=== PATIENT | male | born 1935 | race Hispanic/Latino ===

== ENCOUNTER 2018-04-05 20:01 | Emergency (ER) | payer OTHER ==
[~2018-04-05 20:01] MED LIST: ATOR10 PO; CHOL500050 PO; LEVO175T9 PO; LOSA50TA25 PO; METO25 PO
== END 2018-04-05 21:23 | disposition home or self-care (01) ==
LOC: EDH 20:01
DX: R21 Rash and other nonspecific skin eruption (principal); E78.5 Hyperlipidemia, unspecified; I10 Essential (primary) hypertension; E07.9 Disorder of thyroid, unspecified; Z98.890 Other specified postprocedural states; Z87.891 Personal history of nicotine dependence

== ENCOUNTER → 2019-04-09 | Outpatient (CLI) | payer OTHER ==
[~2019-04-09] VITALS: Ht 167.6 cm; Wt 69.4 kg
[~2019-04-09] MED LIST changes: +CHOL100046 PO; -CHOL500050 PO; +CLOB15CR5 TP; +FERR324T PO; +FURO40TA5 PO; +GLIP5TAB11 PO; +LEVO150 PO; -LEVO175T9 PO; -LOSA50TA25 PO; +LOSA50TA64 PO; +METF-444 PO; -METO25 PO; +NITR0.4T50 SL; +REGADENOSON 0.4 MG/5 ML PF SYG IVP SCH
== END | disposition home or self-care (01) ==
LOC: SHCH 08:43
PROVIDERS: ATTEND Internal Medicine Cardiovascular Disease
DX: I20.9 Angina pectoris, unspecified (principal); R94.31 Abnormal electrocardiogram [ECG] [EKG]; R06.09 Other forms of dyspnea
CPT/HCPCS: 78452; 93017; 96374; A9500 ×2; J2785

== ENCOUNTER 2019-05-01 06:54 | Day surgery (SDC) | payer OTHER ==
[~2019-05-01] VITALS: Ht 167.6 cm; Wt 72.1 kg
[~2019-05-01 06:54] MED LIST changes: -CHOL100046 PO; -CLOB15CR5 TP; -FERR324T PO; -REGADENOSON 0.4 MG/5 ML PF SYG IVP SCH; +SODIUM CHLORIDE 0.9% 1000ML 1,000 ML IV ONE
[2019-05-01 07:49] VITALS: BP 134/58
[2019-05-01 07:50] LABS: BASOPHILS % (AUTO) 1.4 % (0.0-5.0); EOSINOPHILS % (AUTO) 5.5 % (0.0-8.0); LYMPHOCYTES % (AUTO) 26.8 % (21.0-51.0); MEAN CORPUSCULAR HEMOGLOBIN 26.7 pg (27.0-33.0); MEAN CORPUSCULAR HGB CONC 32.3 g/dL (32.0-36.0); MEAN CORPUSCULAR VOLUME 82.7 fL (79-99); MONOCYTES % (AUTO) 11.3 % (3.0-13.0); PLATELET COUNT (AUTO) 100 K/uL (130-400); RED BLOOD CELL COUNT(AUTO) 3.38 MIL/uL (4.50-6.20); RED CELL DISTRIBUTION WIDTH 17.7 % (11.0-15.5); WHITE BLOOD COUNT (AUTO) 6.5 K/uL (4.8-10.8)
[2019-05-01] MEDS ORDERED: CLOB15CR5 TP (08:38)
[2019-05-01 08:48] LABS: INR 1.03 (0.85-1.15); PROTHROMBIN TIME 10.8 SEC (9.6-11.6)
[2019-05-01] MEDS ORDERED: PROPOFOL 10 MG/ML 20ML VIAL IV ONE ×2 (10:26)
[2019-05-01 10:42] VITALS: BP 102/43
[2019-05-01 10:45] VITALS: BP 102/48
[2019-05-01 10:50] VITALS: BP 108/51
[2019-05-01 10:56] VITALS: BP 114/61
== END 2019-05-01 11:06 | disposition home or self-care (01) ==
LOC: DAH 06:54 → ENDO 06:54
PROVIDERS: ATTEND Internal Medicine
DX: K74.60 Unspecified cirrhosis of liver (principal); I85.00 Esophageal varices without bleeding; K31.89 Other diseases of stomach and duodenum; E03.9 Hypothyroidism, unspecified; I10 Essential (primary) hypertension; I25.10 Atherosclerotic heart disease of native coronary artery without angina pectoris; Z90.49 Acquired absence of other specified parts of digestive tract; Z98.890 Other specified postprocedural states; M19.90 Unspecified osteoarthritis, unspecified site; E78.5 Hyperlipidemia, unspecified; Z79.899 Other long term (current) drug therapy; Z95.818 Presence of other cardiac implants and grafts; Z87.891 Personal history of nicotine dependence
CPT/HCPCS: 36415; 43239; 43244; 85025; 85610; 88305; A4215; A4221; A4222; A4223; A4606; A4620; A4663; J2704 ×2; J7030

== ENCOUNTER 2019-05-14 01:16 | Day surgery (SDC) | payer OTHER ==
[2019-05-13 15:48] VITALS: BP 135/66
[2019-05-13 16:12] LABS: BASOPHILS % (AUTO) 1.4 % (0.0-5.0); EOSINOPHILS % (AUTO) 6.4 % (0.0-8.0); HEMATOCRIT 30.8 % (42-54); LYMPHOCYTES % (AUTO) 29.5 % (21.0-51.0); MEAN CORPUSCULAR HEMOGLOBIN 27.1 pg (27.0-33.0); MEAN CORPUSCULAR HGB CONC 32.3 g/dL (32.0-36.0); NEUTROPHILS % (AUTO) 54.7 % (40.0-77.0); PLATELET COUNT (AUTO) 170 K/uL (130-400); RED BLOOD CELL COUNT(AUTO) 3.66 MIL/uL (4.50-6.20); RED CELL DISTRIBUTION WIDTH 20.6 % (11.0-15.5); WHITE BLOOD COUNT (AUTO) 7.3 K/uL (4.8-10.8)
[2019-05-13 16:26] LABS: CREATININE 0.8 mg/dL (0.5-1.5); INR 1.04 (0.85-1.15); PARTIAL THROMBOPLASTIN TIME 28.9 SEC (26.3-35.5); POTASSIUM 3.8 mmol/L (3.5-5.1); PROTHROMBIN TIME 10.9 SEC (9.6-11.6)
[2019-05-13 17:46] LABS: APPEARANCE,URINE Clear (CLEAR); BILIRUBIN,URINE Negative (NEGATIVE); COLOR,URINE Yellow (YELLOW); GLUCOSE, URINE (UA) Negative (NEGATIVE); KETONES,URINE Negative (NEGATIVE); LEUKOCYTE ESTERASE ,URINE Moderate (NEGATIVE); NITRATE,URINE Negative (NEGATIVE); OCCULT BLOOD,URINE Negative (NEGATIVE); PROTEIN,URINE Negative (NEGATIVE)
[2019-05-13 17:56] LABS: BACTERIA,URINE Few /HPF (None Seen); RBC,URINE 0-1 /HPF (0-1); SQUAMOUS EPITHELIAL CELL,UR Few /HPF (0-2); WBC,URINE 51-100 /HPF (0-1)
--- NOTE | 2019-05-13 18:30 | NUR ---
DR. WHITAKER PAGE THROUGH ANSWERING SERVICE TO REPORT ABNORMAL LABS, WAITING SUPERINTENDENT TERMINAL BACK.
[~2019-05-14] VITALS: Ht 167.6 cm; Wt 71.8 kg
[2019-05-14] VITALS (10 sets, daily range): BP systolic 134–152; BP diastolic 60–87
[~2019-05-14 01:16] MED LIST changes: -FURO40TA5 PO; -GLIP5TAB11 PO; -METF-444 PO; -NITR0.4T50 SL; -SODIUM CHLORIDE 0.9% 1000ML 1,000 ML IV ONE
[2019-05-14] MEDS ORDERED: LACTATED RINGERS 1000ML 1,000 ML IV SCH (06:00)
[2019-05-14] MEDS ORDERED: CEFAZOLIN SODIUM 1 GM VIAL IVP SCH (06:00)
--- NOTE | 2019-05-14 06:55 | NUR ---
Pt taken to OR by TEJAL Davila and ANNE-MARIE Gore.
[2019-05-14] MEDS ORDERED: FURO40TA5 PO (16:37)
[2019-05-14] MEDS ORDERED: CHOL100046 PO (16:43)
[2019-05-14] MEDS ORDERED: FERR324T PO (16:43)
[2019-05-14] MEDS ORDERED: NITR0.4T50 SL (16:43)
[2019-05-14] MEDS ORDERED: BACITRACIN 28.4 GM OINT TP ONE (18:48)
[2019-05-14] MEDS ORDERED: BUPIVACAINE/PF 0.25% 30ML VIAL IJ ONE (18:49)
[2019-05-14] MEDS ORDERED: LIDOCAINE HCL 1% 20 ML VIAL ONE (18:49)
[2019-05-14] MEDS ORDERED: PROPOFOL 10 MG/ML 20ML VIAL IV ONE (19:13)
[2019-05-14] MEDS ORDERED: LIDOCAINE PF 2% 5ML ABBOJECT ONE (19:13)
[2019-05-14] MEDS ORDERED: ONDANSETRON HCL 4 MG/2 ML VIAL ONE (19:13)
[2019-05-14] MEDS ORDERED: ROCURONIUM 10MG/1ML SYR 10 MG/ML ML ONE (19:14)
[2019-05-14] MEDS ORDERED: FENTANYL CITRATE PF 50 MCG/1 ML 2ML VIAL ONE (19:14)
[2019-05-14] MEDS ORDERED: CEFAZOLIN SODIUM 1 GM VIAL ONE (19:26)
[2019-05-14] MEDS ORDERED: ZOSYN 3.375GM+NS 50ML 50 ML IV ONE (20:20)
[2019-05-14] MEDS ORDERED: PHENYLEPHRINE HCL 10 MG/ML 1ML VIAL IV ONE (20:26)
[2019-05-14] MEDS ORDERED: GLYCOPYRROLATE 1 MG/5 ML SYRINGE ONE (20:42)
[2019-05-14] MEDS ORDERED: NEOSTIGMINE 5MG/5ML SYR IV ONE (20:43)
--- NOTE | 2019-05-14 21:35 | NUR ---
Holly, Pst Manager notified that pt was unable to obtain a ride home as their previous arrangements were no longer available due to how late it was. Holly instructed me to discharge pt as planned and to take them to wait in ER registration where a ride would be arranged.
--- NOTE | 2019-05-14 22:10 | NUR ---
Pt clear for discharge home. Tolerating fluids well, ambulating well with stand-by assistnace. Denies any severe pain, nausea or dizziness. Dressing to penis remains clean, dry, and intact. Pt reminded to leave dressing on for 24 hours and then remove and shower as normal. Prescriptions for medications given. Pt taken to ER registration. child support officer notified that patient was there. Security in process of making arrangements for pt to get home. Holly, superintendent house notified that pt was discharged and waiting in ER for ride home.
== END 2019-05-14 10:11 | disposition home or self-care (01) ==
LOC: DAH 01:16
PROVIDERS: ATTEND Urology
DX: N47.1 Phimosis (principal); I10 Essential (primary) hypertension; I25.10 Atherosclerotic heart disease of native coronary artery without angina pectoris; E03.9 Hypothyroidism, unspecified; E11.9 Type 2 diabetes mellitus without complications; Z79.82 Long term (current) use of aspirin; Z79.01 Long term (current) use of anticoagulants; Z79.899 Other long term (current) drug therapy; Z90.49 Acquired absence of other specified parts of digestive tract; Z98.890 Other specified postprocedural states
CPT/HCPCS: 36415; 54001; 71046; 80048; 81001; 85025; 85610; 85730; 87077 ×2; 87088; 87186 ×2; 93005; A4215; A4221; A4222; A4223; A4663; A6260; C1769; J0690; J2001; J2370; J2405; J2543; J2704; J2710; J3010; J3490 ×2; J7120 ×2

== ENCOUNTER → 2019-05-20 | Outpatient (CLI) | payer OTHER ==
[~2019-05-20] MED LIST changes: +CHOL100046 PO; +FERR324T PO; +FURO40TA5 PO; +NITR0.4T50 SL
== END | disposition home or self-care (01) ==
LOC: RAH 08:21
PROVIDERS: ATTEND Internal Medicine Gastroenterology
DX: K74.60 Unspecified cirrhosis of liver (principal); R16.2 Hepatomegaly with splenomegaly, not elsewhere classified
CPT/HCPCS: 76700; 93975

== ENCOUNTER → 2020-10-06 | Outpatient (CLI) | payer OTHER | END | disposition home or self-care (01) | LOC: SHCH 14:35 | PROVIDERS: ATTEND Internal Medicine Cardiovascular Disease | DX: I65.23 Occlusion and stenosis of bilateral carotid arteries (principal); R09.89 Other specified symptoms and signs involving the circulatory and respiratory systems; R55 Syncope and collapse; R01.1 Cardiac murmur, unspecified | CPT/HCPCS: 93306; 93356; 93880 ==

== ENCOUNTER 2022-12-10 15:47 | Inpatient (IN) | payer OTHER ==
[~2022-12-10] VITALS: Ht 162.6 cm; Wt 81.3 kg
[~2022-12-10 15:47] MED LIST changes: -CHOL100046 PO; +METO25TA6 PO
[2022-12-10 16:32] LABS: BASOPHILS % (AUTO) 0.3 % (0.0-5.0); EOSINOPHILS % (AUTO) 0.7 % (0.0-8.0); HEMATOCRIT 30.9 % (42-54); LYMPHOCYTES % (AUTO) 21.1 % (21.0-51.0); MEAN CORPUSCULAR HEMOGLOBIN 29.7 pg (27.0-33.0); MEAN CORPUSCULAR HGB CONC 31.7 g/dL (32.0-36.0); MEAN CORPUSCULAR VOLUME 93.6 fL (79-99); MONOCYTES % (AUTO) 7.3 % (3.0-13.0); NEUTROPHILS % (AUTO) 69.7 % (40.0-77.0); PLATELET COUNT (AUTO) 191 K/uL (130-400); RED CELL DISTRIBUTION WIDTH 15.9 % (11.0-15.5); WHITE BLOOD COUNT (AUTO) 12.3 K/uL (4.8-10.8)
[2022-12-10 16:43] LABS: CREATININE 1.1 mg/dL (0.5-1.5); POTASSIUM 3.9 mmol/L (3.5-5.1)
[2022-12-10 16:53] LABS: ALBUMIN 2.4 g/dL (3.5-5.0); TOTAL PROTEIN, SERUM 5.4 g/dL (6.0-8.3)
[2022-12-10] MEDS: IPRATROPIUM/ALBUTEROL SULFATE 3 ML SOLUTION IH SCH (20:34)
[2022-12-10] MEDS ORDERED: ACETAMINOPHEN 325 MG TAB PO PRN ×2 (22:30)
[2022-12-10] MEDS ORDERED: MORPHINE 2 MG SYG IV PRN (22:30)
[2022-12-10] MEDS ORDERED: POTASSIUM CHLORIDE 20MEQ/100ML 100 ML IV PRN (22:30)
[2022-12-10] MEDS ORDERED: MAGNESIUM 2GM PREMIX 50ML 50 ML IV PRN (22:30)
[2022-12-10] MEDS ORDERED: MORPHINE 4 MG SYG IV PRN (22:30)
[2022-12-10] MEDS ORDERED: ONDANSETRON 4MG INJ IV PRN (22:30)
[2022-12-10] MEDS ORDERED: FUROSEMIDE 40MG VIAL IV ONE (22:30)
[2022-12-10] MEDS ORDERED: POTASSIUM CHLORIDE 10% ELIXIR 20 MEQ/15 ML UDCUP PO PRN (22:30)
[2022-12-11] VITALS: BP 139/74
[2022-12-11 00:26] LABS: APPEARANCE,URINE CLEAR (CLEAR); BILIRUBIN,URINE NEGATIVE (NEGATIVE); COLOR,URINE LIGHT-YELLOW (YELLOW); GLUCOSE, URINE (UA) NEGATIVE (NEGATIVE); KETONES,URINE NEGATIVE (NEGATIVE); LEUKOCYTE ESTERASE ,URINE 25 Leu/uL (NEGATIVE); NITRATE,URINE NEGATIVE (NEGATIVE); OCCULT BLOOD,URINE NEGATIVE (NEGATIVE); PH,URINE 5.5 (5.0-8.0); PROTEIN,URINE NEGATIVE (NEGATIVE); UROBILINOGEN,URINE 0.2 mg/dL (0.2-1.0)
[2022-12-11 00:32] LABS: BACTERIA,URINE RARE /HPF (None Seen); MUCUS,URINE RARE LPF (None Seen); RBC,URINE 0-1 /HPF (0-1); SQUAMOUS EPITHELIAL CELL,UR RARE /HPF (0-2)
[2022-12-11] MEDS ORDERED: PRED10TA3 PO (00:33)
[2022-12-11] MEDS ORDERED: METF750T46 PO (00:33)
[2022-12-11] MEDS ORDERED: CARV6.25 PO (00:33)
[2022-12-11] MEDS: IPRATROPIUM/ALBUTEROL SULFATE 3 ML SOLUTION IH SCH (02:13)
[2022-12-11 04:00] VITALS: BP 107/53
[2022-12-11 04:45] LABS: BASOPHILS % (AUTO) 0.8 % (0.0-5.0); EOSINOPHILS % (AUTO) 4.3 % (0.0-8.0); HEMATOCRIT 28.4 % (42-54); LYMPHOCYTES % (AUTO) 27.2 % (21.0-51.0); MEAN CORPUSCULAR HEMOGLOBIN 29.7 pg (27.0-33.0); MEAN CORPUSCULAR VOLUME 95.9 fL (79-99); MONOCYTES % (AUTO) 9.4 % (3.0-13.0); NEUTROPHILS % (AUTO) 57.3 % (40.0-77.0); PLATELET COUNT (AUTO) 149 K/uL (130-400); RED BLOOD CELL COUNT(AUTO) 2.96 MIL/uL (4.50-6.20); RED CELL DISTRIBUTION WIDTH 16.1 % (11.0-15.5); WHITE BLOOD COUNT (AUTO) 10.9 K/uL (4.8-10.8)
[2022-12-11 05:01] LABS: INR 1.08 (0.85-1.15); PROTHROMBIN TIME 11.7 SEC (9.6-11.6)
[2022-12-11 05:02] LABS: PARTIAL THROMBOPLASTIN TIME 26.2 SEC (26.3-35.5)
[2022-12-11 05:15] LABS: HEMOGLOBIN A1C 10.4 % (4.0-6.0)
[2022-12-11 05:32] LABS: CREATININE 0.9 mg/dL (0.5-1.5); MAGNESIUM 1.6 mg/dL (1.80-2.40); PHOSPHORUS 2.2 mg/dL (2.5-4.9); POTASSIUM 3.6 mmol/L (3.5-5.1); THYROID STIMULATING HORMONE 13.98 uIU/mL (0.36-3.74)
[2022-12-11] MEDS: INSULIN HUMULIN R 100 UNIT/ML 3ML SQ SCH ×4 (06:12→21:03)
[2022-12-11 08:00] VITALS: BP 104/59
[2022-12-11] MEDS: LACTULOSE 20 GM/30 ML UDCUP PO SCH ×2 (08:26→20:12)
[2022-12-11] MEDS: FAMOTIDINE 20MG VIAL IV SCH (08:26)
[2022-12-11] MEDS: FUROSEMIDE 40MG VIAL IV SCH (08:26)
[2022-12-11 11:55] VITALS: BP 106/59
[2022-12-11] MEDS ORDERED: MAGNESIUM 2GM PREMIX 50ML 50 ML IV SCH (13:30)
[2022-12-11] MEDS: POTASSIUM CHLORIDE 20 MEQ/100 ML BAG IV SCH (13:30)
[2022-12-11] MEDS: KCL 20 MEQ ERTAB PO PRN (13:55)
[2022-12-11 14:46] LABS: ABG HCO3 19.9 mmol/L (21.0-28.0); ABG OXYGEN SATURATION 92.8 % (95.0-99.0); ABG PCO2 27 mmHg (35-48)
[2022-12-11] MEDS ORDERED: SPIRONOLACTONE 25 MG TAB PO SCH (15:33)
[2022-12-11 16:00] VITALS: BP 90/51
[2022-12-11 20:00] VITALS: BP 97/56
[2022-12-11] MEDS: SPIRONOLACTONE 25 MG TAB PO SCH (20:12)
[2022-12-12] VITALS (7 sets, daily range): BP systolic 95–127; BP diastolic 50–82
[2022-12-12 04:43] LABS: BASOPHILS % (AUTO) 0.7 % (0.0-5.0); EOSINOPHILS % (AUTO) 6.1 % (0.0-8.0); HEMATOCRIT 27.1 % (42-54); LYMPHOCYTES % (AUTO) 27.2 % (21.0-51.0); MEAN CORPUSCULAR HEMOGLOBIN 29.9 pg (27.0-33.0); MEAN CORPUSCULAR HGB CONC 31.7 g/dL (32.0-36.0); MEAN CORPUSCULAR VOLUME 94.1 fL (79-99); MONOCYTES % (AUTO) 7.9 % (3.0-13.0); NEUTROPHILS % (AUTO) 57.2 % (40.0-77.0); NUCLEATED RED BLOOD CELLS 0.2 % (0.0-0.19); PLATELET COUNT (AUTO) 132 K/uL (130-400); RED BLOOD CELL COUNT(AUTO) 2.88 MIL/uL (4.50-6.20); RED CELL DISTRIBUTION WIDTH 16.1 % (11.0-15.5); WHITE BLOOD COUNT (AUTO) 8.7 K/uL (4.8-10.8)
[2022-12-12 04:55] LABS: ALBUMIN 2.3 g/dL (3.5-5.0); CREATININE 0.9 mg/dL (0.5-1.5); MAGNESIUM 1.6 mg/dL (1.80-2.40); POTASSIUM 3.3 mmol/L (3.5-5.1); TOTAL PROTEIN, SERUM 5.1 g/dL (6.0-8.3)
[2022-12-12] MEDS: INSULIN HUMULIN R 100 UNIT/ML 3ML SQ SCH ×4 (05:43→20:03)
[2022-12-12] MEDS: LEVOTHYROXINE 150 MCG TABLET PO SCH (06:10)
[2022-12-12] MEDS ORDERED: KCL 20 MEQ ERTAB PO ONE (09:00)
[2022-12-12] MEDS ORDERED: MAGNESIUM 2GM PREMIX 50ML 50 ML IV SCH (09:00)
[2022-12-12] MEDS: LACTULOSE 20 GM/30 ML UDCUP PO SCH ×2 (09:07→20:00)
[2022-12-12] MEDS: FAMOTIDINE 20MG VIAL IV SCH (09:08)
[2022-12-12] MEDS: FUROSEMIDE 40MG VIAL IV SCH (09:08)
[2022-12-12] MEDS: SPIRONOLACTONE 25 MG TAB PO SCH ×2 (09:08→20:00)
[2022-12-12] MEDS: POTASSIUM CHLORIDE 20 MEQ/100 ML BAG IV SCH (13:30)
[2022-12-12] MEDS: KCL 20 MEQ ERTAB PO PRN ×3 (17:17→20:00)
[2022-12-13] VITALS (14 sets, daily range): BP systolic 92–132; BP diastolic 47–73
[2022-12-13 05:05] LABS: BASOPHILS % (AUTO) 0.5 % (0.0-5.0); EOSINOPHILS % (AUTO) 4.1 % (0.0-8.0); HEMATOCRIT 27.5 % (42-54); LYMPHOCYTES % (AUTO) 14.9 % (21.0-51.0); MEAN CORPUSCULAR HEMOGLOBIN 29.9 pg (27.0-33.0); MEAN CORPUSCULAR HGB CONC 31.6 g/dL (32.0-36.0); MEAN CORPUSCULAR VOLUME 94.5 fL (79-99); MONOCYTES % (AUTO) 7.4 % (3.0-13.0); NEUTROPHILS % (AUTO) 72.3 % (40.0-77.0); NUCLEATED RED BLOOD CELLS 0.9 % (0.0-0.19); PLATELET COUNT (AUTO) 134 K/uL (130-400); RED BLOOD CELL COUNT(AUTO) 2.91 MIL/uL (4.50-6.20); RED CELL DISTRIBUTION WIDTH 16.2 % (11.0-15.5); WHITE BLOOD COUNT (AUTO) 10.4 K/uL (4.8-10.8)
[2022-12-13 05:32] LABS: ALBUMIN 2.4 g/dL (3.5-5.0); CREATININE 1.1 mg/dL (0.5-1.5); TOTAL PROTEIN, SERUM 5.4 g/dL (6.0-8.3)
[2022-12-13] MEDS: INSULIN HUMULIN R 100 UNIT/ML 3ML SQ SCH ×4 (06:19→21:17)
[2022-12-13] MEDS: LEVOTHYROXINE 150 MCG TABLET PO SCH (06:20)
[2022-12-13] MEDS: LACTULOSE 20 GM/30 ML UDCUP PO SCH ×3 (09:00→21:15)
[2022-12-13] MEDS: FUROSEMIDE 40MG VIAL IV SCH (09:42)
[2022-12-13] MEDS: FAMOTIDINE 20MG VIAL IV SCH (09:42)
[2022-12-13] MEDS: SPIRONOLACTONE 25 MG TAB PO SCH ×2 (09:42→21:15)
[2022-12-13] MEDS: POTASSIUM CHLORIDE 20 MEQ/100 ML BAG IV SCH (11:14)
[2022-12-13 17:09] LABS: PH, BODY FLUID 7
[2022-12-13 17:13] LABS: APPEARANCE BODY FLUID BLOODY (CLEAR); COLOR,BODY FLUID RED (LT YELLOW); SPECIMENTYPE,BODY FLUID PLEURAL; TOTAL VOLUME,BODY FLUID 700 mL
[2022-12-13 17:19] LABS: GLUCOSE,BODY FLUID 164 mg/dL (1-40)
[2022-12-13 17:20] LABS: ALBUMIN,BODY FLUID < 0.6 g/dL
[2022-12-13] MEDS: CEFTRIAXONE 1G VIAL IVPB SCH (17:22)
[2022-12-13 17:28] LABS: BODY FLUID RBC 65546 /cu. mm.; BODY FLUID WBC 15467 /cu. mm.
[2022-12-13 17:54] LABS: BF LYMPHOCYTE 3 %; BF MESOTHELIAL 2 %; BF MONOCYTE 13 %; BF OTHER CELLS 5
[2022-12-14 03:48] VITALS: BP 97/55
[2022-12-14 04:48] LABS: BASOPHILS % (AUTO) 0.6 % (0.0-5.0); EOSINOPHILS % (AUTO) 4.1 % (0.0-8.0); HEMATOCRIT 25.4 % (42-54); LYMPHOCYTES % (AUTO) 16.4 % (21.0-51.0); MEAN CORPUSCULAR HEMOGLOBIN 29.5 pg (27.0-33.0); MEAN CORPUSCULAR HGB CONC 31.9 g/dL (32.0-36.0); MEAN CORPUSCULAR VOLUME 92.4 fL (79-99); MONOCYTES % (AUTO) 8.1 % (3.0-13.0); NEUTROPHILS % (AUTO) 70.2 % (40.0-77.0); NUCLEATED RED BLOOD CELLS 0.3 % (0.0-0.19); PLATELET COUNT (AUTO) 108 K/uL (130-400); RED BLOOD CELL COUNT(AUTO) 2.75 MIL/uL (4.50-6.20); RED CELL DISTRIBUTION WIDTH 16.2 % (11.0-15.5); WHITE BLOOD COUNT (AUTO) 6.9 K/uL (4.8-10.8)
[2022-12-14 05:06] LABS: ALBUMIN 2.2 g/dL (3.5-5.0); CREATININE 1.1 mg/dL (0.5-1.5); POTASSIUM 3.4 mmol/L (3.5-5.1); TOTAL PROTEIN, SERUM 5.1 g/dL (6.0-8.3)
[2022-12-14] MEDS: INSULIN HUMULIN R 100 UNIT/ML 3ML SQ SCH ×2 (06:23→11:42)
[2022-12-14] MEDS: LEVOTHYROXINE 150 MCG TABLET PO SCH (06:25)
[2022-12-14] MEDS ORDERED: FURO40TA5 PO (07:24)
[2022-12-14] MEDS ORDERED: SPIR50TA PO (07:24)
[2022-12-14 07:41] VITALS: BP 92/50
[2022-12-14 07:58] LABS: % IRON SATURATION 6.6 % (30-44)
[2022-12-14 08:27] LABS: MAGNESIUM 1.6 mg/dL (1.80-2.40)
[2022-12-14] MEDS: SPIRONOLACTONE 25 MG TAB PO SCH ×2 (09:00→09:16)
[2022-12-14] MEDS: LACTULOSE 20 GM/30 ML UDCUP PO SCH (09:16)
[2022-12-14] MEDS: FAMOTIDINE 20MG VIAL IV SCH (09:17)
[2022-12-14] MEDS: FUROSEMIDE 40MG VIAL IV SCH (09:17)
[2022-12-14] MEDS: KCL 20 MEQ ERTAB PO PRN ×2 (09:22→11:39)
[2022-12-14 10:20] VITALS: BP 97/55
[2022-12-14] MEDS: CEFTRIAXONE 1G VIAL IVPB SCH (12:00)
[2022-12-14] MEDS: POTASSIUM CHLORIDE 20 MEQ/100 ML BAG IV SCH (13:30)
== END 2022-12-14 13:58 | disposition home or self-care (01) | DRG 186 ==
LOC: EDH 15:47 → EDHIP 22:10 → 4DH 12-11 00:05
PROVIDERS: ADMIT Hospitalist; ATTEND Hospitalist
PROC: 0W993ZZ Drainage of Right Pleural Cavity, Percutaneous Approach (ICD-10-PCS; principal; 2022-12-13)
DX: J90 Pleural effusion, not elsewhere classified (principal); E43 Unspecified severe protein-calorie malnutrition; R65.11 Systemic inflammatory response syndrome (SIRS) of non-infectious origin with acute organ dysfunction; N39.0 Urinary tract infection, site not specified; E11.65 Type 2 diabetes mellitus with hyperglycemia; I11.0 Hypertensive heart disease with heart failure; I50.9 Heart failure, unspecified; K74.60 Unspecified cirrhosis of liver; E03.9 Hypothyroidism, unspecified; E66.09 Other obesity due to excess calories; E78.00 Pure hypercholesterolemia, unspecified; Z96.651 Presence of right artificial knee joint; K80.20 Calculus of gallbladder without cholecystitis without obstruction; Z79.899 Other long term (current) drug therapy; Z95.5 Presence of coronary angioplasty implant and graft; Z68.30 Body mass index [BMI] 30.0-30.9, adult
CPT/HCPCS: 32555; 36415; 36600; 71045; 80048; 80053; 81001; 82042; 82140; 82607; 82746; 82803; 82945; 82948; 83036; 83540; 83550; 83615; 83735; 83880; 83986; 84100; 84157; 84443; 84484; 85025; 85610; 85730; 86850; 86900; 86901; 87040; 87071; 87088; 87205; 89051; 93005; 94640; C1729; G0378; J0696; J1815; J1940; J3475; J3490